=== PATIENT | female | born 1960 | race Caucasian/White ===

== ENCOUNTER → 2017-01-10 11:57 | Day surgery (SDC) | payer BC ==
[~2017-01-10 11:57] MED LIST: Buffered Lidocaine 1% SYRIN* 3 ML/SYR SYRINGE INTRADERM ONE; Bupivacaine 0.5% SDV PF* 30 ML VIAL ONE; Clindamycin 900 MG IVPREMIX(* 900 MG/50 ML SDV IV ONE; Dexamethasone TAB* 4 MG ONE; Dexamethasone TAB* 4 MG PO ONE; Famotidine IV* 10 MG/ML 2 ML (20 mg) IV ONE; Famotidine IV* 10 MG/ML 2 ML (20 mg) ONE; Glucagon* 1 MG VIAL ONE; Ketorolac INJ* 30 MG/ML 1 ML VIAL ONE; Lidocaine 2% PF* 10 ML AMP ONE; Lidocaine 2% PF* 5 ML VIAL ONE; Midazolam* 1 MG/ML 5 ML VIAL (5 MG) ONE; Ondansetron INJ* 2 MG/ML VIAL ONE; PROCHLORPERAZINE INJ 5 MG/ML 2 ML VIAL IV PRN; Propofol* 10 MG/ML 20 ML BTL IV PUSH ONE; fentaNYL* 50 MCG/ML 2 ML VIAL (100 MCG VIAL) ONE; oxyCODONE TAB* 5 MG TAB ONE; oxyCODONE/Acetamin 5/325 MG* TAB PO PRN
[2017-01-10] MEDS: fentaNYL* 50 MCG/ML 2 ML VIAL (100 MCG VIAL) IV PRN ×2 (15:24→15:45)
[2017-01-10 16:58] VITALS: BP 131/74
--- NOTE | 2017-01-11 09:39 | OP ---
DATE OF OPERATION: 01/10/17 - [facility] DATE OF : 64 SURGEON: Reilly Tan MD ANESTHESIOLOGIST: Mely Lemus MD ANESTHESIA: General PRE-OP DIAGNOSIS: Insertional tendinosis, right Achilles. POST-OP DIAGNOSIS: Insertional tendinosis, right Achilles. OPERATIVE PROCEDURE: Posterior calcanectomy with reattachment and advancement of the Achilles tendon. DESCRIPTION OF PROCEDURE: The patient was taken to the operating room, where prone positioning was used. A mid longitudinal incision approximately 10 cm in length medial to the Achilles. This was carried down over the posterior aspect of the calcaneus. We reflected the Achilles tendon away from the posterior calcaneus. This allowed us to completely excise the posterior superior aspect of the calcaneus providing smooth cancellous bed. The Achilles tendon itself was intact at this level without significant tendinopathy. This was reattached using paired #1 Ti-Cron sutures passed through drill holes in the calcaneus bringing the sutures out over of the plantar aspect of the cortex tying these down with the foot slightly plantar flexed. This repaired the tendon tightly to the cut edge of the calcaneus. We then irrigated it thoroughly closing subcu with 2-0 Vicryl and kike for the skin and a compression dressing plaster splint. [id number]/[facility] #: [id number] [facility]
== END | disposition home or self-care (01) ==
LOC: OR 11:57
PROVIDERS: ATTEND Orthopaedic Surgery
DX: M76.61 Achilles tendinitis, right leg (principal); I10 Essential (primary) hypertension; E78.5 Hyperlipidemia, unspecified
CPT/HCPCS: 88304; 88311; A9270-GY; C1776; J1610; J1885; J2001; J2250; J2405; J2704; J3010